=== PATIENT | female | born 1965 | race Asian ===

== ENCOUNTER 2018-05-25 21:46 | Emergency (ER) | payer SELFPAY ==
[~2018-05-25] VITALS: Ht 157.5 cm; Wt 65.8 kg
[2018-05-25 21:56] VITALS: BP 109/87
[2018-05-25] MEDS ORDERED: TDAP [DIPH/PERTUSSIS/TET] 0.5 ML VIAL IM ONE ×2 (22:20→22:30)
[2018-05-25] MEDS ORDERED: LORAZEPAM 1 MG TABLET ONE (23:11)
[2018-05-25] MEDS ORDERED: LORAZEPAM 0.5 MG TABLET PO ONE (23:30)
== END 2018-05-25 23:21 | disposition home or self-care (01) ==
LOC: ER 21:47
DX: S01.81XA Laceration without foreign body of other part of head, initial encounter (principal); S10.81XA Abrasion of other specified part of neck, initial encounter; Z85.828 Personal history of other malignant neoplasm of skin; Z90.710 Acquired absence of both cervix and uterus; Z98.890 Other specified postprocedural states; W54.0XXA Bitten by dog, initial encounter; Y93.89 Activity, other specified; Y92.89 Other specified places as the place of occurrence of the external cause; Y99.8 Other external cause status
CPT/HCPCS: 12011; 90471; 90715; 99283; A4606; A6402; Z7610